=== PATIENT | female | born 1945 | race Caucasian/White ===

== ENCOUNTER → 2021-01-28 11:03 | Outpatient (REF) | payer MEDICARE, SELFPAY | LOC: ANHLAB 11:03 | PROVIDERS: Visit Provider Nurse Practitioner | DX: L72.0 Epidermal cyst (principal) | CPT/HCPCS: 88304; 88305 ==

== ENCOUNTER 2022-08-16 10:01 | Outpatient (NON) | payer MEDICARE, SELFPAY | END 2022-08-16 10:02 | disposition home or self-care (01) | LOC: ANHLAB 08-17 10:03 | PROVIDERS: Visit Provider Nurse Practitioner | DX: L72.0 Epidermal cyst (principal) | CPT/HCPCS: 88304 ==